=== PATIENT | female | born 1935 | race Caucasian/White ===

== ENCOUNTER 2022-08-15 10:55 | Outpatient (REF) | payer BC, SELFPAY ==
--- NOTE | ~2022-08-15 | MR_ITS ---
EXAMINATION: MR BRAIN WITHOUT CONTRAST CLINICAL INFORMATION: Alzheimer's disease. COMPARISON: None available. TECHNIQUE: Multiplanar, multisequence imaging of the brain was performed without intravenous contrast. FINDINGS: There is no acute infarction, hemorrhage, mass, or extra-axial fluid collection. There are small chronic lacunar infarcts within the bilateral thalami and bilateral cerebellar hemispheres. Moderate patchy foci of T2/FLAIR hyperintensity are seen within the cerebral white matter, typical of chronic microangiopathy. There are small chronic infarct within the left precentral gyrus. There is a mild degree of diffuse brain parenchymal volume loss with commensurate prominence of the ventricles and sulci. There is no hydrocephalus. The major arterial flow voids are preserved at the skull base. There is a left lens replacement. Degenerative changes are seen within the upper cervical spine. MR/MR head/brain wo con IMPRESSION: 1. No intracranial mass lesion, infarction, hemorrhage or evidence of hydrocephalus. 2. 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 Mild diffuse brain parenchymal volume loss without a regional or lobar predominant pattern of atrophy.
== END 2022-08-15 10:56 | disposition home or self-care (01) ==
LOC: HO.MRI 10:55
PROVIDERS: PCP Internal Medicine Endocrinology, Diabetes & Metabolism; Visit Provider Psychiatry & Neurology Neurology
DX: G30.9 Alzheimer's disease, unspecified (principal)
CPT/HCPCS: 70551